=== PATIENT | female | born 1965 | race African-American/Black ===

== ENCOUNTER 2018-07-16 08:30 | Emergency (ER) | payer OTHER ==
[~2018-07-16] VITALS: Ht 177.8 cm; Wt 126.9 kg
[2018-07-16 08:40] VITALS: BP 159/89
== END 2018-07-16 11:00 | disposition home or self-care (01) ==
LOC: ER 08:57
DX: J32.9 Chronic sinusitis, unspecified (principal); Z88.6 Allergy status to analgesic agent; Z91.041 Radiographic dye allergy status; Z88.8 Allergy status to other drugs, medicaments and biological substances; Z98.890 Other specified postprocedural states
CPT/HCPCS: 99282

== ENCOUNTER 2018-09-14 17:05 | Emergency (ER) | payer MEDICAID, OTHER ==
[~2018-09-14] VITALS: Ht 177.8 cm; Wt 122.0 kg
[2018-09-14] MEDS ORDERED: KETOROLAC 60MG/2ML VIAL IM ONE (20:30)
[2018-09-14 20:54] VITALS: BP 147/77
== END 2018-09-14 22:05 | disposition home or self-care (01) ==
LOC: ER 17:05
DX: M25.511 Pain in right shoulder (principal); Z98.890 Other specified postprocedural states; Z88.5 Allergy status to narcotic agent; Z88.6 Allergy status to analgesic agent; Z88.8 Allergy status to other drugs, medicaments and biological substances
CPT/HCPCS: 73030; 96372; 99283; J1885

== ENCOUNTER 2019-01-19 16:51 | Emergency (ER) | payer MEDICAID ==
[~2019-01-19] VITALS: Ht 177.8 cm; Wt 125.0 kg
[2019-01-19 17:09] VITALS: BP 143/77
== END 2019-01-19 21:45 | disposition left against medical advice (07) ==
LOC: ER 17:09
DX: Z53.21 Procedure and treatment not carried out due to patient leaving prior to being seen by health care provider (principal)